=== PATIENT | female | born 1955 | race Caucasian/White ===

== ENCOUNTER 2017-04-15 06:24 | Day surgery (SDC) | payer BC ==
[2017-04-15] MEDS ORDERED: Sodium Chloride 0.9% 10 ML ONE (06:48)
[2017-04-15] MEDS ORDERED: Sodium Tetradecyl Sulfate 1% 20 MG/2 ML SDV ONE (06:48)
[2017-04-15] MEDS ORDERED: Lidocaine 1% with EPINEPHrine 1:100,000 50 ML MDV ONE (06:48)
[2017-04-15] MEDS ORDERED: Sodium Chloride 0.9% 1,000 ML IV SCH (07:00)
[2017-04-15] MEDS ORDERED: Midazolam 1 MG/ML 2 ML SDV ONE (07:33)
[2017-04-15] MEDS ORDERED: fentaNYL 100 MCG/2 ML SDV ONE (07:33)
[2017-04-15] MEDS ORDERED: Propofol 200 MG/20 ML SDV ONE ×2 (07:33→08:10)
[2017-04-15] MEDS ORDERED: Sodium Chloride 0.9% 10 ML SDV IV ONE (08:13)
[2017-04-15] MEDS: Lidocaine 1% w/EPINEPHrine 50 ML, Sodium Bicarbonate 5 MEQ in Sodium Chloride 0.9% 950 ML INJECT SCH ×2 (08:29→08:30)
--- NOTE | 2017-04-15 10:54 | US ---
RFA Guidance-No Charge INDICATION: RFA FINDINGS: Ultrasound guidance provided.
--- NOTE | 2017-04-15 11:45 | OR ---
DATE OF PROCEDURE: 04/15/2017 PROCEDURE: 1. Radiofrequency ablation of left greater saphenous vein. 2. Radiofrequency ablation of right greater saphenous vein. 3. Sclerotherapy of left leg, multiple. 4. Sclerotherapy of right leg, multiple. 5. Compression wrapping, 2-stage of left leg (00826). 6. Compression wrapping, right leg, 2-stage (68063). COMPLICATIONS: None. 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 ANESTHESIA: MAC. RISKS: Risks, benefits, alternatives, and limitations including but not limited to infection, bleeding, and DVT formation were explained to the patient who wished to proceed. PREOPERATIVE DIAGNOSIS: Venous/varicose vein insufficiency with inflammation, pain, and lipodermatosclerosis, bilaterally. POSTOPERATIVE DIAGNOSIS: Venous/varicose vein insufficiency with inflammation, pain, and lipodermatosclerosis, bilaterally. PROCEDURE IN DETAIL: The patient was placed in supine position. The left GSV was identified at first and this would be accessed at the level of the ankle. This was accessed using a 21-gauge needle, then exchanged for a 35,000th wire, then exchanged for a 7-Trinidadian sheath. RFA probe was advanced to greater than 3 cm from the saphenofemoral junction. A tumescent fluid was injected in 1 cm jacket around this and verified a second and third time. A direct even pressure was held as the sheath was deployed x2 proximally and distally and x1 in all other segments. The sheath and device were then removed and direct pressure was held for 7 minutes, and Dermabond was applied. Of note, approximately 1 L of fluid was used on each leg and was verified a second and third time for proper tumescent application. The right leg was then performed in the same manner, same fashion, same technique, in the same sequence using the same equipment. Sclerotherapy was then performed in the left and right legs using 0.33% sodium tetradecyl. This was always drawn back to ensure intravascular injection only, no more than 2 mL was injected in one location, 5 on the right and 4 on the left. Two-stage compression wrapping was then performed using the CoFlex 2 system. This was a [id number] type pattern. The patient tolerated the procedure well. Tristen Garzon MD /[id number]
== END 2017-04-15 10:45 | disposition home or self-care (01) ==
LOC: JP.SDS 06:24
PROVIDERS: ATTEND Surgery
DX: I87.2 Venous insufficiency (chronic) (peripheral) (principal); I83.11 Varicose veins of right lower extremity with inflammation; I83.12 Varicose veins of left lower extremity with inflammation; I83.813 Varicose veins of bilateral lower extremities with pain; E11.22 Type 2 diabetes mellitus with diabetic chronic kidney disease; I12.9 Hypertensive chronic kidney disease with stage 1 through stage 4 chronic kidney disease, or unspecified chronic kidney disease; N18.3 Chronic kidney disease, stage 3 (moderate); E11.42 Type 2 diabetes mellitus with diabetic polyneuropathy; E78.5 Hyperlipidemia, unspecified; E66.9 Obesity, unspecified; E55.9 Vitamin D deficiency, unspecified; E03.9 Hypothyroidism, unspecified; F43.23 Adjustment disorder with mixed anxiety and depressed mood; Z98.84 Bariatric surgery status; Z79.4 Long term (current) use of insulin; Z79.899 Other long term (current) drug therapy; Z79.82 Long term (current) use of aspirin; Z88.8 Allergy status to other drugs, medicaments and biological substances; Z87.891 Personal history of nicotine dependence
CPT/HCPCS: 29581; 36471; 36475; J1642; J2250; J2704; J3010; J7040; J7050; J3490